=== PATIENT | male | born 1990 | race American Indian/Alaskan Native ===

== ENCOUNTER 2018-05-07 22:42 | Emergency (ER) | payer OTHER, MEDICAID ==
[2018-05-07 22:50] VITALS: BP 141/77
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
== END 2018-05-08 02:02 | disposition home or self-care (01) ==
LOC: ED 22:42
DX: L02.31 Cutaneous abscess of buttock (principal); F12.10 Cannabis abuse, uncomplicated
CPT/HCPCS: 99282

== ENCOUNTER 2018-06-23 17:46 | Emergency (ER) | payer MEDICAID, OTHER ==
[2018-06-23 19:10] VITALS: BP 137/83
[2018-06-23] MEDS ORDERED: THERMAZENE 50 GRAM TP ONE ×2 (19:14→19:16)
[2018-06-23] MEDS ORDERED: BOOSTRIX IM ONE (19:16)
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
== END 2018-06-23 19:30 | disposition home or self-care (01) ==
LOC: ED 17:46
DX: T22.231A Burn of second degree of right upper arm, initial encounter (principal); F17.200 Nicotine dependence, unspecified, uncomplicated; X08.8XXA Exposure to other specified smoke, fire and flames, initial encounter; Y93.89 Activity, other specified; Y92.89 Other specified places as the place of occurrence of the external cause; Y99.8 Other external cause status
CPT/HCPCS: 90471; 90715; 99282